=== PATIENT | female | born 1995 | race Two or more races ===

== ENCOUNTER 2021-12-19 08:00 | Outpatient (CLI) | payer MEDICAID ==
[2021-12-19 21:13] LABS: BASOPHILS % (AUTO) 0.4 %; EOSINOPHILS % (AUTO) 0.2 %; HCT - HEMATOCRIT 41.6 % (37.0-47.0); HGB - HEMOGLOBIN 14.7 g/dL (12.0-16.0); LYMPHOCYTES # (AUTO) 1.8 10^3/uL (1.5-3.5); LYMPHOCYTES % (AUTO) 31.6 %; MEAN CORPUSCULAR HEMOGLOBIN 31.1 pg (27.0-31.0); MEAN CORPUSCULAR HGB CONC 35.3 g/dL (32.0-36.0); MEAN CORPUSCULAR VOLUME 88.1 fL (81.0-99.0); MEAN PLATELET VOLUME 11.5 fL (7.9-10.8); MONOCYTES # (AUTO) 0.5 10^3/uL (0.0-1.0); MONOCYTES % (AUTO) 8.4 %; NEUTROPHILS # (AUTO) 3.3 10^3/uL (1.5-6.6); PLT - PLATELET COUNT 193 10^3/uL (130-450); RED BLOOD COUNT 4.72 10^6/uL (4.20-5.40); RED CELL DISTRIBUTION WIDTH 12.8 % (12.0-15.0); WHITE BLOOD COUNT 5.6 x10^3/uL (4.8-10.8)
[2021-12-19 21:28] LABS: ALBUMIN 4.8 g/dL (3.2-5.5); ALBUMIN/GLOBULIN RATIO 1.9 (1.0-2.2); ALKALINE PHOSPHATASE 27 IU/L (42-121); ALT ALANINE AMINOTRANSFERASE 14 IU/L (10-60); AST ASPARTATE AMINOTRANSFERASE 17 IU/L (10-42); BILIRUBIN,TOTAL 1.6 mg/dL (0.2-1.0); BUN - BLOOD UREA NITROGEN 7 mg/dL (6-20); CARBON DIOXIDE - CO2 25 mmol/L (21-32); CHLORIDE 101 mmol/L (101-111); CREATININE 0.7 mg/dL (0.4-1.0); GFR - MDRD 100 (>89); GLUCOSE 86 mg/dL (70-100); POTASSIUM 3.9 mmol/L (3.5-5.0); SODIUM 137 mmol/L (135-145); TOTAL PROTEIN 7.3 g/dL (6.7-8.2)
[2021-12-19 21:54] LABS: CRP - C-REACTIVE PROTEIN < 1.0 mg/dL (0-1.0)
== END 2021-12-19 08:01 | disposition home or self-care (01) ==
LOC: LAB.N 08:00
PROVIDERS: ATTEND Registered Nurse
DX: R10.31 Right lower quadrant pain (principal)
CPT/HCPCS: 36415; 80053; 85025; 85651; 86140; 87086

== ENCOUNTER 2024-07-17 12:47 | Emergency (ER) | payer MEDICAID ==
[2024-07-17 13:11] VITALS: BP 132/92; O2SAT 100
--- NOTE | 2024-07-17 13:29 | ED Physician Documentation ---
PD HPI ABD PAIN - Stated complaint Stated Complaint: ABD PX,BLOATING,FATIGUE - Chief complaint Chief Complaint: Abd Pain - History obtained from History obtained from: Patient - History of Present Illness Timing - onset: How many days ago (7-8) Timing - duration: Days (7-8) Timing - details: Gradual onset, Still present, Waxing and waning. No: Intermi ttant Quality: Cramping, Aching, Pain Location: Periumbilical, Other (lower abd mostly) Radiation: Lower back Improved by: No: BM, Meds (has tried gas-ex and tylenol wihtout improement.) Worsened by: Eating Associated symptoms: Nausea, Diarrhea (loose stools but not watery. Her new puppy was having loose stools and was Dx by Vet with worms (did not know what type). On antiparsitic. Pt wonder if that is what she has. Pt noted small white objects in her stool the last 1-2 days. Also itching around rectum. No noted movement in her stool.). No: Fever, Vomiting, Constipation Similar symptoms before: Diagnosis (Prior IBS 2 years ago with Dx after stool tests, EGD, colonoscopy, blood tests. Also Dx with gluten intol and lactole intol. No recent change in diet.) Review of Systems Constitutional: denies: Fever, Chills Nose: reports: Rhinorrhea / runny nose, Congestion Throat: denies: Sore throat Respiratory: denies: Cough GI: reports: Abdominal Pain, Nausea. denies: Vomiting, Constipation, Bloody / black stool PD PAST MEDICAL HISTORY - Past Medical History Past Medical History: Yes GI: Other (IBS with gluten and lactose intolerance. No IBD nor Crohns. 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 - Present Medications Home Medications: Ambulatory Orders Medication Instructions Recorded Confirmed Albendazole 400 mg PO Q7D #4 tablet 07/17/24 HYDROcod/ACETAM 5/325 [Inchelium 5/325] 1 ea PO Q6H PRN #10 tablet 07/17/24 Hyoscyamine [Levsin] 0.125 mg SL Q6H PRN #12 tablet 07/17/24 Ondansetron Odt [Zofran] 4 mg TL Q6H PRN #10 tablet 07/17/24 - Allergies Allergies/Adverse Reactions: Allergies Allergy/AdvReac Type Severity Reaction Status Date / Time No Known Drug Allergies Allergy Verified 07/17/24 13:05 - Social History Does the pt smoke?: No Smoking Status: Never smoker Does the pt drink ETOH?: No Does the pt have substance abuse?: No - Immunizations Immunizations are current?: Yes - POLST Patient has POLST: No PD ED PE NORMAL - Vitals Vital signs reviewed: Yes - General General: Alert and oriented X 3, Well developed/nourished - Abdomen Abdomen: Normal bowel sounds, Soft, Non distended, Other (some tender periumbilcal without guarding nor rebound. Not tender RLQ nor gallbladder area per se. ) - Rectal Rectal: Deferred - Back Back: No CVA TTP - Derm Derm: Normal color, Warm and dry Results - Vitals Vitals: Vital Signs - 24 hr 07/17/24 07/17/24 13:05 15:06 Temperature 36.3 C L 36.3 C L Heart Rate 79 79 Respiratory 17 17 Rate Blood Pressure 132/92 H 132/92 H O2 Saturation 100 100 Oxygen O2 Source Room air - Labs Labs: Laboratory Tests 07/17/24 07/17/24 07/17/24 13:30 14:04 14:04 WBC 3.8 L RBC 4.67 Hgb 14.6 Hct 41.7 MCV 89.3 MCH 31.3 H MCHC 35.0 RDW 12.3 Plt Count 156 MPV 10.3 Neut # (Auto) 1.6 Lymph # (Auto) 1.8 Nance # (Auto) 0.4 Eos # (Auto) 0.0 Baso # (Auto) 0.0 Absolute Nucleated RBC 0.00 Nucleated RBC % 0.0 Sodium 136 Potassium 3.7 Chloride 105 Carbon Dioxide 25 Anion Gap 6.0 BUN 10 Creatinine 0.7 Estimated GFR (MDRD) 98 Glucose 79 Calcium 9.4 Total Bilirubin 1.0 AST 21 ALT 20 Alkaline Phosphatase 28 L Total Protein 6.7 Albumin 4.3 Globulin 2.4 Albumin/Globulin Ratio 1.8 Lipase 13 Urine Color YELLOW Urine Clarity CLEAR Urine pH 6.5 Ur Specific [place] <=1.005 Urine Protein NEGATIVE Urine Glucose (UA) NEGATIVE Urine Ketones NEGATIVE Urine Occult Blood NEGATIVE Urine Nitrite NEGATIVE Urine Bilirubin NEGATIVE Urine Urobilinogen 0.2 (NORMAL) Ur Leukocyte Esterase NEGATIVE Ur Microscopic Review NOT INDICATED Urine Culture Comments NOT INDICATED Urine HCG, Qual NEGATIVE PD Medical Decision Making - ED course Complexity details: reviewed results (I did not have expectation of diagnostic value for imaging, so no CT/etc. To see if worms/etc, ordered O&P. Lab rejected it since a trace of urine to it. I would think would affect culture or such but not O&P. But sent pt with outpt stool collection kit.), considered differential (having 7-8 days of mid to lower abd cramping and looser stools, not overt diarrhea. Has had IBS Dx 2 years ago and was improved with probiotics and diet restrictions. Occasional pains with certain foods the past year. Current symptoms very unusual. ), d/w patient ED course: Given some congestion and malaise, I wonder if viral GE. But not diarrhea per se. Consider if she has pinworms with her description of cramps, some itchy bottom, and white things in stool. More likely to have viral cause for triggering the IBS. N history of IBD, so I don't believe steroids/etc will help. Can treat with antispasmodic, TYlenol, Zofran and pain meds short term. Departure - Departure Disposition: 01 Home, Self Care Clinical Impression: Abdominal pain, Abnormal stools, History of IBS Condition: Stable Record reviewed to determine appropriate education?: Yes Instructions: ED Abdominal Pain Female Non-Specific Abdominal Pain Follow-Up: MEGHNA VARMA, UNDERC[facility] COP [Primary Care Provider] - Prescriptions: Albendazole 400 mg PO Q7D #4 tablet Hyoscyamine [Levsin] 0.125 mg SL Q6H PRN #12 tablet PRN Reason: Abdominal Pain HYDROcod/ACETAM 5/325 [Inchelium 5/325] 1 ea PO Q6H PRN #10 tablet PRN Reason: Pain Ondansetron Odt [Zofran] 4 mg TL Q6H PRN #10 tablet PRN Reason: Nausea / Vomiting Comments: Your basic blood tests are good without any elevation of your white count, abnormality of your electrolytes, and normal pancreas and liver and kidney function tests. The stool sample you gave was rejected by the lab because of some urine in there. Personally do not think this would interfere with evaluation for ova and parasite but not my call. You can collect a another sample outpatient and bring it to the lab or your primary care. This can help perhaps distinguish other causes for the pain and cramps. Meanwhile it is possible you could have gotten the worms from your pet it is not unreasonable to treat with the antiprotozoal medication as there is very little side effects to it. However stool sample may help for bacterial or other causes. Meanwhile we can try to help with the pain and cramps assuming an IBS flareup from what ever the trigger including parasitic as there will likely be ongoing cramps still for a few more days. I wrote for prescriptions for combination of ondansetron for nausea and the albendazole antiparasitic. Levsin if needed for cramps as well. In addition stay well-hydrated. Add Tylenol 500 650 mg 4 times daily if needed for pain or hydrocodone if needed for worse pain and cramps. I would assume this will just be needed short-term over the next few days. I sent your prescriptions to your preferred pharmacy. Follow-up with your primary care. I am prescribing a short course of narcotic pain medication for you. These are potentially dangerous and addictive medications that should be used carefully. These medications may constipate you. Take an [id number] stool softener such as docusate twice daily with plenty of water while taking these medications. If you go 24 hours without a bowel movement, take [id number] MiraLAX, per package instructions. Do not drink or drive while taking these medications. If you received narcotic or sedating medications while in the emergency department do not drive for 24 hours. Store this medication in a safe, secure place and out of reach of children. It is a violation of federal law to give or sell this medication to another person or to use in a manner other than prescribed. The ED will not refill narcotic prescriptions, including prescriptions lost or stolen. You can dispose of unwanted medications at the [facility]'s office or at several pharmacies such as [facility]. Forms: PCP List Discharge Date/Time: 07/17/24 15:13
[2024-07-17 13:40] LABS: BILIRUBIN,URINE NEGATIVE (NEGATIVE); GLUCOSE, URINE (UA) NEGATIVE (NEGATIVE); KETONES,URINE (UA) NEGATIVE (NEGATIVE); LEUKOCYTE ESTERASE, URINE NEGATIVE (NEGATIVE); NITRITE,URINE NEGATIVE (NEGATIVE); OCCULT BLOOD,URINE NEGATIVE (NEGATIVE); PH,URINE 6.5 PH (5.0-7.5); PROTEIN,URINE NEGATIVE (NEGATIVE); UROBILINOGEN,URINE 0.2 (NORMAL) E.U./dL (NORMAL)
[2024-07-17 13:43] LABS: CLARITY,URINE CLEAR (CLEAR); HCG UR QUAL NEGATIVE
[2024-07-17 14:08] LABS: BASOPHILS % (AUTO) 0.5 %; EOSINOPHILS % (AUTO) 0.8 %; HCT - HEMATOCRIT 41.7 % (37.0-47.0); HGB - HEMOGLOBIN 14.6 g/dL (12.0-16.0); LYMPHOCYTES # (AUTO) 1.8 10^3/uL (1.5-3.5); LYMPHOCYTES % (AUTO) 46.3 %; MEAN CORPUSCULAR HEMOGLOBIN 31.3 pg (27.0-31.0); MEAN CORPUSCULAR VOLUME 89.3 fL (81.0-99.0); MEAN PLATELET VOLUME 10.3 fL (7.9-10.8); MONOCYTES # (AUTO) 0.4 10^3/uL (0.0-1.0); MONOCYTES % (AUTO) 9.5 %; NEUTROPHILS # (AUTO) 1.6 10^3/uL (1.5-6.6); NEUTROPHILS % (AUTO) 42.9 %; PLT - PLATELET COUNT 156 10^3/uL (130-450); RED BLOOD COUNT 4.67 10^6/uL (4.20-5.40); RED CELL DISTRIBUTION WIDTH 12.3 % (12.0-15.0); WHITE BLOOD COUNT 3.8 x10^3/uL (4.8-10.8)
[2024-07-17 14:21] LABS: ALBUMIN 4.3 g/dL (3.2-5.5); ALBUMIN/GLOBULIN RATIO 1.8 (1.0-2.2); CALCIUM 9.4 mg/dL (8.5-10.3); CREATININE 0.7 mg/dL (0.6-1.3); POTASSIUM 3.7 mmol/L (3.5-4.5); TOTAL PROTEIN 6.7 g/dL (6.4-8.9)
[2024-07-17] MEDS: ONDANSETRON ODT 4 MG TABLET TL STA (14:26)
[2024-07-17] MEDS: HYOSCYAMINE SL 0.125 MG TABLET SL STA (14:27)
== END 2024-07-17 15:13 | disposition home or self-care (01) ==
LOC: ED 12:47
DX: R10.30 Lower abdominal pain, unspecified (principal); R19.5 Other fecal abnormalities; K58.9 Irritable bowel syndrome, unspecified
CPT/HCPCS: 36415; 80053; 81003; 81025; 83690; 85025; 99283; 99284; A9270; Q0162; 81001; 83630; 83993; 87086; 87177; 87209

== ENCOUNTER 2024-07-19 08:00 | Outpatient (CLI) | payer MEDICAID | END 2024-07-19 23:59 | disposition home or self-care (01) | LOC: LAB.N 08:00 | PROVIDERS: ATTEND Emergency Medicine | DX: R10.9 Unspecified abdominal pain (principal); R19.5 Other fecal abnormalities | CPT/HCPCS: 83630; 83993; 87177; 87209 ==